=== PATIENT | female | born 1970 | race African-American/Black ===

== ENCOUNTER 2017-10-30 08:33 | Observation (INO) ==
[2017-10-30] MEDS ORDERED: ASPIRIN 325 MG TABLET PO STA (08:55)
[2017-10-30] MEDS ORDERED: ONDANSETRON 4 MG/2 ML VIAL IV STA (08:55)
[2017-10-30] MEDS ORDERED: NITROGLYCERIN 2% OINT 1 INCH/GM PACK TOP STA (09:03)
[2017-10-30 09:10] LABS: Basophils % 0.4 % (0.0-0.8); Eosinophils # 0.2 10*3/uL (0.0-0.87); Hematocrit 44.3 VOL% (35.7-47.0); Hemoglobin 14.8 GM/DL (12.0-16.0); Immature Granulocytes % 0.2 %; Immature Granulocytes Absolute 0.01 #; Lymphocytes % 39.8 % (21.3-54.2); Mean Corpuscular HGB Conc 33.4 GM/DL (32-36); Mean Corpuscular Hemoglobin 32 PG (27-34); Mean Corpuscular Volume 95.7 FL (87-102); Mean Platelet Volume 10.8 FL (9.6-12.0); Monocytes # 0.6 10*3/uL (0.11-0.8); Monocytes % 12.2 % (1.7-12.7); Neutrophils # 2.2 10*3/uL (1.4-7.4); Neutrophils % 43.4 % (38.7-73.9); Platelet Count 202 T/CUMM (130-400); Red Blood Count 4.63 MC/CUMM (3.8-5.5); Red Cell Distribution Width 13.4 % (9.3-17.3)
[2017-10-30] MEDS ORDERED: ENOXAPARIN 100 MG/ML SYRINGE SUBCUT STA (09:14)
[2017-10-30 09:16] LABS: PT Patient Result 10.1 SECS; Partial Thromboplastin Time 29.6 SECS (0-40)
[2017-10-30 09:31] LABS: Albumin 3.9 G/DL (3.4-5.0); Bilirubin,Total 0.8 MG/DL (0.2-1.0); Calcium 9.1 MG/DL (8.5-10.1); Osmolality,Calculated 277.4 MOS/KG (273-304); Potassium 3.2 MMOL/L (3.5-5.1); Total Protein 8.1 G/DL (6.4-8.3)
[2017-10-30] MEDS ORDERED: POTASSIUM CHLORIDE 20 MEQ TABLET PO STA (11:47)
[2017-10-30] MEDS ORDERED: MORPHINE 4 MG/1 ML VIAL IV ONE (13:26)
[2017-10-30] MEDS ORDERED: PROMETHAZINE 25 MG TABLET PO PRN (14:59)
[2017-10-30] MEDS ORDERED: ONDANSETRON 4 MG/2 ML VIAL IV PRN (14:59)
[2017-10-30] MEDS ORDERED: DOCUSATE SODIUM 100 MG CAPSULE PO PRN (14:59)
[2017-10-30] MEDS ORDERED: MORPHINE 4 MG/1 ML VIAL IV PRN (14:59)
[2017-10-30] MEDS ORDERED: diphenhydrAMINE CAP 25 MG CAPSULE PO PRN (14:59)
[2017-10-30] MEDS ORDERED: BISACODYL 5 MG TABLET PO PRN (14:59)
[2017-10-30] MEDS ORDERED: MAGNESIUM SULF RIDER 2 GM in PREMIX 1 EACH IV PRN (14:59)
[2017-10-30] MEDS ORDERED: MAGNESIUM SULF RIDER 4 GM in PREMIX 1 EACH IV PRN (14:59)
[2017-10-30] MEDS ORDERED: ZALEPLON 5 MG CAPSULE PO PRN (14:59)
[2017-10-30] MEDS ORDERED: LACTULOSE 20 GM/30 ML UDCUP PO PRN (14:59)
[2017-10-30] MEDS ORDERED: hydrALAZINE 20 MG/1 ML VIAL IV PRN (15:02)
[2017-10-30] MEDS: ATENOLOL 25 MG TABLET PO SCH (17:09)
[2017-10-30] MEDS: ACETAMINOPHEN 325 MG TABLET PO PRN ×2 (17:09→22:30)
[2017-10-30] MEDS: POTASSIUM CHLORIDE 20 MEQ TABLET PO PRN ×2 (20:49→22:31)
[2017-10-30] MEDS ORDERED: CITALOPRAM 20 MG TABLET PO SCH (21:00)
[2017-10-31 05:22] LABS: Basophils % 0.7 % (0.0-0.8); Eosinophils # 0.2 10*3/uL (0.0-0.87); Eosinophils % 4.2 % (0.00-10.9); Hematocrit 39.2 VOL% (35.7-47.0); Immature Granulocytes % 0.2 %; Immature Granulocytes Absolute 0.01 #; Lymphocytes # 1.8 10*3/uL (1.4-4.0); Lymphocytes % 42.2 % (21.3-54.2); Mean Corpuscular HGB Conc 33.2 GM/DL (32-36); Mean Corpuscular Hemoglobin 32 PG (27-34); Mean Corpuscular Volume 95.4 FL (87-102); Mean Platelet Volume 10.8 FL (9.6-12.0); Monocytes # 0.6 10*3/uL (0.11-0.8); Monocytes % 14.9 % (1.7-12.7); Neutrophils # 1.6 10*3/uL (1.4-7.4); Neutrophils % 37.8 % (38.7-73.9); Platelet Count 185 T/CUMM (130-400); Red Blood Count 4.11 MC/CUMM (3.8-5.5); Red Cell Distribution Width 13.5 % (9.3-17.3); White Blood Count 4.2 T/CUMM (4-12)
[2017-10-31 06:03] LABS: Calcium 8.6 MG/DL (8.5-10.1); Osmolality,Calculated 283.1 MOS/KG (273-304); Potassium 4.4 MMOL/L (3.5-5.1); Risk Ratio 4.04; Thyroid Stimulating Hormone 8.93 uIU/ml (0.358-3.74); VLDL CHOLESTEROL 21.6 MG/DL
[2017-10-31] MEDS: LEVOTHYROXINE 50 MCG TABLET PO SCH ×2 (06:05→09:38)
[2017-10-31 07:28] LABS: Band Neutrophils 1 % (0-10); Eosinophils 4 % (0-10); Lymphocytes 37 % (20-55); Macrocytosis 1+; Platelet Estimate Normal; Segmented Neutrophils 56 % (50-85); Total Cells Counted 100
[2017-10-31 07:49] LABS: Amorphous Crystals,Urine Occasional /HPF (Few); Apearance,Urine CLEAR (Clear); Bacteria,Urine Occasional /HPF (Few); Bilirubin,Urine Negative (Negative); Blood, Urine Negative (Negative); Glucose,Urine (UA) Negative (Negative); Ketones,Urine Negative (Negative); Mucus,Urine Occasional /LPF (Occasional); Nitrite,Urine Negative (Negative); Protein,Urine Negative; RBC,Urine <1 /HPF (0-4); Squamous Epithelial Cell,Urine Occasional /HPF (0-10); Urine Color Yellow (Yellow); Urine Specific Gravity 1.023 (1.001-1.035); Urine Urobilinogen < 2.0 EU/DL (0.2-1.0); WBC,Urine 1 /HPF (0-6)
[2017-10-31] MEDS ORDERED: PANTOPRAZOLE 40 MG TABLET PO SCH (09:00)
[2017-10-31] MEDS: ATENOLOL 25 MG TABLET PO SCH (09:32)
[2017-10-31 11:14] VITALS: BP 159/80
== END 2017-10-31 12:50 | disposition home or self-care (01) ==
LOC: N.EDINP 08:33 → N.ED 08:33 → N.2W 12:35 → N.TELES 15:05
PROVIDERS: ADMIT Internal Medicine Cardiovascular Disease; ATTEND Internal Medicine Cardiovascular Disease